=== PATIENT | female | born 1990 | race Two or more races ===

== ENCOUNTER 2024-07-26 05:09 | Inpatient (IN) | payer MEDICAID, OTHER ==
[~2024-07-26] VITALS: Ht 147.3 cm; Wt 76.3 kg
[2024-07-26 05:11] VITALS: PULSE 95; RESP 18; O2SAT 91
--- NOTE | 2024-07-26 05:28 | ED.PDOC ---
Altered Mental Status HPI Comments 27 y/o obese F, with limited known history, is BIBA for ALOC w/decrease responsiveness s/p overdose. Per EMS report, patient and partner were both found altered in same home after overdosing on unknown substance, this morning. Patient was found with pinpoint pupils, respirations degradation, and unresponsive. She was given 4mg Narcan, with positive response. Upon arrival to ED, patient is stated to began opening their eyes. No other associated symptoms reported. Further history is limited, due to patient's condition and absence of family/cad designer drafter historians. Chief Complaint: Overdose Time Seen by MD: 05:00 Reviewed Notes: Nurses Notes, Pipe Insulator Notes, Medications, Allergies Allergies: Coded Allergies: UNOBTAINABLE (Unverified , 07/26/24) Information Source: Emergency Med Personnel Mode of Arrival: EMS Severity: Severe, Unresponsive Timing: Hours Duration: Since onset Prehospital treatment: 12 Lead EKG, Accucheck, Segmental Paving Supervisor, Other (narcan) Quality: Decreased Alertness Recent: Medication/Drug Abuse Associated Signs and Symptoms: None Past Medical History PAST MEDICAL HISTORY: Unknown, Unobtainable Surgical History: Unknown, Unobtainable BUSINESS RECORDS MANAGER History: Unknown, Unobtainable Family History Family History: Unknown, Unobtainable Social History Smoker: Unknown, Unobtainable Alcohol: Unknown, Unobtainable Drugs: Unknown, Unobtainable Lives In: Home All Other Systems: Reviewed and Negative (Comprehensive systems review obtained and negative except for what is stated in the HPI.) Physical Exam General Appearance: Moderate Distress, Obese HEENT: Normal ENT Inspection, Pharynx Normal, TMs Normal Neck: Full Range of Motion, Non-Tender, Normal, Normal Inspection Respiratory: Chest Non-Tender, Lungs Clear, No Accessory Muscle Use, No Respiratory Distress, Normal Breath Sounds Cardiovascular: No Edema, No JVD, No Murmur, No Gallop, Normal Peripheral Pulses, Regular Rate/Rhythm Breast Exam: Deferred Gastrointestinal: No Organomegaly, Non Tender, No Pulsatile Mass, Normal Bowel Sounds, Soft Genitalia: Deferred Pelvic: Deferred Rectal: Deferred Extremities: No calf tenderness, Normal capillary refill, Normal inspection, Normal range of motion, Non-tender, No pedal edema Musculoskeletal : Apperance: Normal Neurologic: Disoriented, No Motor Deficits, Other (nonresponsive ) Cerebellar Function: NOT DONE Reflexes: NOT DONE Skin: Diaphoresis, Normal Color, Warm Peripheral Pulses: 3+ Radial (R), 3+ Radial (L) Lymphatic: No Adenopathy EKG EKG : Pulse Rate (adult): 86 [place]: Normal Cardiac Rhythm: NSR Block: None Hypertrophy: None ST: Normal Was a procedure done? Was a procedure done?: No Differential Diagnosis (ALOC) Differential Diagnosis: Encephalopathy, Hypoxemia, Drug Overdose, ETOH Intoxica tion X-Ray, Labs, Meds, VS Vital Signs Date Time Temp Pulse Resp B/P (MAP) Pulse Ox O2 Delivery O2 Flow Rate FiO2 07/26/24 05:28 86 07/26/24 05:18 86 07/26/24 05:13 94.2 62 8 127/85 (99) 96 94.2 07/26/24 05:11 94.2 95 12 127/85 (99) 98 94.2 07/26/24 05:11 95 18 91 Simple Mask* 12 N/A Current Medications Medications (Trade) Dose Ordered Sig/Reji Route Start Time Stop Time Status Last Admin Naloxone HCl (Narcan) 4 mg ONCE ONCE IV 07/26/24 05:30 07/26/24 05:31 DC 07/26/24 05:43 Naloxone HCl (Narcan) 4 mg ONCE ONCE IV 07/26/24 05:30 07/26/24 05:31 DC 07/26/24 05:43 Unable to get a good history. Vitals stable. Was given naloxone. Moving extremities. Was able to wean off oxygen. Resting comfortably. No distress. Insists on going home. Continue to monitor. Time of 1ST Reevaluation: 05:30 Reevaluation 1ST: Improved Patient Education/Counseling: Diagnosis, Treatment, Other (need for ED observation ) Family Education/Counseling: No Family Present Additional Information Previous visits reviewed: N/A The following tests were ordered, and results were reviewed by me: EKG Additional Information was gathered from interviewing the following independent historians: EMS I reviewed and agreed with the following test results read by other providers: N/A I discussed treatment and results with medical personnel and: patient Departure 1 Departure Time of Disposition: 07:50 Impression: Primary Impression: Metabolic encephalopathy Disposition: 30 STILL A PATIENT Condition: Good Discharged With: Self Critical Care Note Critical Care Time?: Yes (90 min-critical care time only) Critical care comment: Naloxone continue to monitor Stability Stability form required: No Heart Score Heart Score: Heart Score Response (Comments) Value History N/A 0 EKG N/A 0 Age N/A 0 Risk Factors N/A 0 Troponin N/A 0 Total 0 I personally scribed for ARIC CACERES MD ([email or web address]) on 07/26/24 at 05:28. Electronically submitted by Abraham Rock ([email or web address]). I personally scribed for ARIC CACERES MD ([email or web address]) on 07/26/24 at 05:31. Electronically submitted by Abraham Rock [email or web address]). ARIC CACERES MD July 26, 2024 05:28 JANE BAUMAN MD July 26, 2024 07:50
--- NOTE | 2024-07-26 05:41 | ECG ---
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
[2024-07-26] MEDS: NALOXONE HCL 1MG/ML 2ML SYRINGE IV ONE ×4 (05:43→11:08)
[2024-07-26 07:47] VITALS: PULSE 81; RESP 12; O2SAT 96
[2024-07-26] MEDS: SODIUM CHLORIDE 0.9% 1,000 ML IV ONE (08:27)
--- NOTE | 2024-07-26 09:43 | DVH ---
CLINICAL INFORMATION: 27 years old, Female; OVERDOSE. TECHNIQUE: Axial imaging was obtained through the brain without contrast. Coronal and sagittal reform atted images were obtained, reviewed, and stored. Images were reviewed in brain and bone windows. Al l CT scans at this medical facility are performed using dose modulation techniques as appropriate to a performed exam including the following: Automated exposure control was utilized; adjustment of the MA and/or KV according to patient size; and use of iterative reconstruction technique. CTDIvol = 53.4 7 mGy DLP = 965.83 mGy-cm COMPARISON: None FINDINGS: There is no acute intracranial hemorrhage. No mass effect or midline shift. The ventricles and sulci are within normal limits in size for age. Basal cisterns are patent. The calvarium is unre markable. Paranasal sinuses and mastoid air cells are clear. IMPRESSION: No CT evidence of acute intracranial abnormality.
[2024-07-26 09:49] LABS: Basophils # (auto) 0.1 10 ^3/uL (0-0.2); Basophils % (auto) 0.3 % (0.0-2.0); Eosinophils # (auto) 0 10 ^3/uL (0-0.8); Eosinophils % (auto) 0.1 % (0.0-7.0); Hematocrit 44.2 % (36.0-46.0); Hemoglobin 14.9 g/dL (12.2-16.2); Lymphocytes % (auto) 5.6 % (10.0-50.0); Mean Corpuscular Hemoglobin 29.4 pg (28.0-32.0); Mean Corpuscular Hgb Conc. 33.7 g/dL (32.0-36.0); Mean Corpuscular Volume 87.3 fL (80.0-100.0); Monocytes % (auto) 5.4 % (0.0-12.0); Neutrophils # (auto) 16.3 10 ^3/uL (1.6-8.6); Neutrophils % (auto) 88.6 % (37.0-80.0); Platelet Count (auto) 291 10^3/uL (140-450); Red Blood Cells 5.06 10^6/uL (4.0-5.20); Red Cell Distribution Width 14.3 % (11.8-14.3); White Blood Cell 18.4 10^3/uL (4.4-10.8)
[2024-07-26 10:00] LABS: Potassium 4.3 mmol/L (3.5-5.1); Sodium 140 mmol/L (136-145)
[2024-07-26 10:01] LABS: Anion Gap 7 (5-15); Carbon Dioxide 24 mmol/L (20-31)
[2024-07-26 10:05] LABS: Chloride 109 mmol/L (98-107)
[2024-07-26 10:06] LABS: BUN/Creatinine Ratio 20.9 (10.0-20.0); Blood Urea Nitrogen 14 mg/dL (9-23); Glucose 104 mg/dL (74-106)
[2024-07-26 13:14] LABS: Urine Amorphous Crystal FEW /hpf (None Seen); Urine Bacteria FEW /hpf (None Seen); Urine Blood Negative /uL (Negative); Urine Clarity Turbid (Clear); Urine Color Yellow (Yellow); Urine Mucus FEW (None Seen); Urine Protein, UAD 1+ (Negative); Urine Specific Gravity 1.032 (1.001-1.035); Urine Squamous Epithelial Cell FEW /hpf (<5); Urine Urobilinogen Normal (Negative); Urine WBC 5 /HPF (0-5); Urine pH 5.5 (5.0-9.0)
[2024-07-26] MEDS ORDERED: MORPHINE SULFATE INJ 2 MG/ml SYRG IV PRN (13:45)
[2024-07-26] MEDS ORDERED: ONDANSETRON HCL 4 MG/2 ML VIAL IV PRN (13:45)
[2024-07-26] MEDS ORDERED: AZITHROMYCIN 500MG/ 250ML 250 ML IV SCH (13:45)
[2024-07-26] MEDS ORDERED: NITROGLYCERIN 0.4 MG SL TAB SL PRN (13:45)
[2024-07-26] MEDS: cefTRIAXone 1GM/50ML D5W 50 ML IV SCH (13:52)
[2024-07-26] MEDS: SODIUM CHLORIDE 0.9% 1,000 ML IV SCH (13:53)
[2024-07-26] MEDS ORDERED: MORPHINE SULFATE 4 MG/ML SYR/VIAL IV PRN (14:00)
--- NOTE | 2024-07-26 14:09 | DVHHP2 ---
History of Present Illness Reason for Visit: ALOC History of Present Illness Isabell Buckner is a 33-year-old female with past medical history of LADS who presents to the ED with ALOC. Per EMS reports patient was found with another patient both altered possibly at a alliance party with pinpoint pupils. Upon examination patient states that she is homeless, states that she does not know where she had gone to or did any drugs or drink alcohol and did not know where she had woken up to. Patient also states that she does not use oxygen and currently on 4 L nasal cannula. Patient does endorse that she smokes 1 pack of cigarettes per day. Patient denies any chest pain, shortness of breath, abdominal pain, nausea, vomi ting, or diarrhea. Past Surgical History: Other (LADS surgery) Family History: Other (Patient does not know) Smoke: 1 pack per day ALCOHOL: none (Denies) Drugs: None (Denies) Lives: Homeless Domestic Violence: Neg Review of Systems Neurological: Other (ALOC) Allergies: Coded Allergies: UNOBTAINABLE (Unverified , 07/26/24) Medications Current Medications Medications Dose Ordered Sig/Reji Route Start Time Stop Time Status Last Admin Dose Admin Ceftriaxone Sodium 50 ml @ 100 mls/hr DAILY@09 IV 07/26/24 13:45 UNV Azithromycin 250 ml @ 125 mls/hr DAILY IV 07/26/24 13:45 UNV Sodium Chloride 1,000 ml @ 120 mls/hr Q8H20M IV 07/26/24 13:45 UNV Ondansetron HCl 4 mg Q4HP PRN IV 07/26/24 13:45 UNV Enoxaparin Sodium 40 mg DAILY SC 07/27/24 10:00 UNV Acetaminophen 650 mg Q6HP PRN PO 07/26/24 13:45 UNV Nitroglycerin 0.4 mg Q5MINP PRN SL 07/26/24 13:45 UNV Morphine Sulfate 2 mg Q30M PRN IV 07/26/24 13:45 UNV Exam Vital Signs Vital Signs Date Time Temp Pulse Resp B/P (MAP) Pulse Ox O2 Delivery O2 Flow Rate FiO2 07/26/24 12:00 97.5 79 12 124/65 (84) 99 97.5 07/26/24 07:47 Nasal Cannula* 4 36 General Appearance: Alert, Cooperative, No acute distress HEENT: Atraumatic Respiratory: Normal air movement Cardiovascular: Regular rate, Normal S1, Normal S2 Abdominal: Normal bowel sounds, Soft Extremities: No clubbing Neuro: Sensation intact Labs/Xrays Labs Test 07/26/24 12:48 07/26/24 09:30 Range/Units Urine Color Yellow Yellow Urine Clarity Turbid H Clear Urine pH 5.5 5.0-9.0 Urine Specific [place] 1.032 1.001-1.035 Urine Protein 1+ H Negative Urine Ketones Negative Negative Urine Blood Negative Negative /uL Urine Nitrite 2+ H Negative Urine Bilirubin Negative Negative Urine Urobilinogen Normal Negative mg/dL Urine Leukocyte Esterase Negative Negative /uL Urine RBC 2 0 - 4 /hpf Urine Microscopic WBC 5 0-5 /HPF Urine Squamous Epithelial Cells Few <5 /hpf Urine Amorphous Crystals Few None Seen /hpf Urine Bacteria Few H None Seen /hpf Urine Mucus Few None Seen Urine Glucose Normal Normal mg/dL White Blood Count 18.4 H 4.4-10.8 10^3/uL Red Blood Count 5.06 4.0-5.20 10^6/uL Hemoglobin 14.9 12.2-16.2 g/dL Hematocrit 44.2 36.0-46.0 % Mean Corpuscular Volume 87.3 80.0-100.0 fL Mean Corpuscular Hemoglobin 29.4 28.0-32.0 pg Mean Corpuscular Hemoglobin Concent 33.7 32.0-36.0 g/dL Red Cell Distribution Width 14.3 11.8-14.3 % Platelet Count 291 140-450 10^3/uL Mean Platelet Volume 7.6 6.9-10.8 fL Neutrophils (%) (Auto) 88.6 H 37.0-80.0 % Lymphocytes (%) (Auto) 5.6 L 10.0-50.0 % Monocytes (%) (Auto) 5.4 0.0-12.0 % Eosinophils (%) (Auto) 0.1 0.0-7.0 % Basophils (%) (Auto) 0.3 0.0-2.0 % Neutrophils # (Auto) 16.3 H 1.6-8.6 10 ^3/uL Lymphocytes # (Auto) 1.0 0.4-5.4 10 ^3/uL Monocytes # (Auto) 1.0 0-1.3 10 ^3/uL Eosinophils # (Auto) 0 0-0.8 10 ^3/uL Basophils # (Auto) 0.1 0-0.2 10 ^3/uL Nucleated Red Blood Cells 0.0 % Sodium Level 140 136-145 mmol/L Potassium Level 4.3 3.5-5.1 mmol/L Chloride Level 109 H 98-107 mmol/L Carbon Dioxide Level 24 20-31 mmol/L Anion Gap 7 5-15 Blood Urea Nitrogen 14 9-23 mg/dL Creatinine 0.67 0.550-1.02 mg/dL Glomerular Filtration Rate Calc 122 >90 mL/min BUN/Creatinine Ratio 20.9 H 10.0-20.0 Serum Glucose 104 74-106 mg/dL Calcium Level 10.0 8.7-10.4 mg/dL CLINICAL INFORMATION: 27 years old, Female; OVERDOSE. TECHNIQUE: Axial imaging was obtained through the brain without contrast. Coronal and sagittal reformatted images were obtained, reviewed, and stored. Images were reviewed in brain and bone windows. All CT scans at this medical facility are performed using dose modulation techniques as appropriate to a performed exam including the following: Automated exposure control was utilized; adjustment of the MA and/or KV according to patient size; and use of iterative reconstruction technique. CTDIvol = 53.47 mGy DLP = 965.83 mGy-cm COMPARISON: None FINDINGS: There is no acute intracranial hemorrhage. No mass effect or midline shift. The ventricles and sulci are within normal limits in size for age. Basal cisterns are patent. The calvarium is unremarkable. Paranasal sinuses and mastoid air cells are clear. IMPRESSION: No CT evidence of acute intracranial abnormality. Assessment/Plan Assessment/Plan Assessment Acute encephalopathy probable substance abuse Leukocytosis probably due to UTI versus pneumonia versus other etiology, rule out sepsis Acute hypoxic respiratory failure Tobacco use History of LADS surgery Plan Admit to tele IV antibiotics-ceftriaxone + azithromycin Aleman catheter CT head noted Narcan given ED NS given ED IV fluids UA EKG NPO for now DIAMOND BLENDER eval UDS Urine bacterial culture Blood culture Lactic level Chest x-ray ordered Supportive oxygen Patient reports she does not take any medications at home or on the street DVT prophylaxis-Lovenox PUD prophylaxis-H2 blockers Discussed plan of care with patient and nurse Counseled patient on cessation of tobacco use Social work-patient is homeless Plan discussed with: Patient My Orders Orders - DALE GLASGOW Procedure Category Date Status Time Ceftriaxone 1gm/50ml PHA 07/26/24 In Process D5w (Rocephin) 13:45 Azithromycin 500mg/ PHA 07/26/24 In Process 250ml (Zithromax 50 13:45 Chest Xray 1 View XY 07/26/24 Logged 13:39 Drug Screen LAB 07/26/24 Logged 13:39 Admit ADMIT 07/26/24 Transmitted 13:39 Allergies DONNA 07/26/24 In Process 13:39 Code Status CODE 07/26/24 Transmitted 13:39 Sodium Chloride 0.9% PHA 07/26/24 In Process 13:45 Ondansetron Hcl PHA 07/26/24 In Process (Zofran) 13:45 Enoxaparin Sodium PHA 07/27/24 In Process (Lovenox) 10:00 Complete Blood Count LAB 07/27/24 Verified 04:00 Comprehensive LAB 07/27/24 Verified Metabolic Panel 04:00 Npo (Nothing By DIET 07/26/24 Transmitted Mouth) Diet Dinner Acetaminophen Tablet PHA 07/26/24 In Process (Tylenol Tablet) 13:45 Nitroglycerin PHA 07/26/24 In Process Sublingual (Ntrostat 13:45 Stat Ekg For Chest DONNA 07/26/24 In Process Pain 13:39 Notify Md Of Changes DONNA 07/26/24 In Process From Base 13:39 Frame And Scrap Crusher For DONNA 07/26/24 In Process 24 Hours 13:39 Emergency Dysrhythmia DONNA 07/26/24 In Process Protocol 13:39 Rhythm Strips Once DONNA 07/26/24 In Process Every Shift 13:39 Oxygen By Nasal RT 07/26/24 Transmitted Cannula 13:39 Speech Pathologist DONNA 07/26/24 In Process Eval: Swall 13:39 Urine Bacterial MIGUEL 07/26/24 Logged Culture 13:39 Blood Culture MIGUEL 07/26/24 Logged 13:39 Lactic Acid W/ Reflex LAB 07/26/24 Logged Order 13:39 Morphine Sulfate PHA 07/26/24 In Process Injection 14:00 Date of Service: July 26, 2024 Billing Provider: DALE GLASGOW Common Visit Codes: [id number] INP/OBS CARE (HIGH) DALE GLASGOW July 26, 2024 14:09
[2024-07-26 14:18] LABS: Amphetamine Screen, Urine Pos (NEGATIVE); Barbiturate Scree,Urine Neg (NEGATIVE); Benzodiazephine Screen, Urine Neg (NEGATIVE); Cannabinoid Screen, Urine Pos (NEGATIVE); Cocaine Screen, Urine Neg (NEGATIVE); Opiate Scree,Urine Neg (NEGATIVE); Phencyclidine Screen, Urine Neg (NEGATIVE)
--- NOTE | 2024-07-26 14:26 | DVH ---
CHEST RADIOGRAPH Indication: poss asp Technique: Single frontal view of the chest was obtained Comparison: None FINDINGS: Lines and Tubes: None Lungs: No focal consolidation. Pleura: No effusion. No pneumothorax. Cardiomediastinal contours: Cardiomegaly Bones: No acute osseous abnormality. IMPRESSION: Cardiomegaly with CHF
[2024-07-26] MEDS: AZITHROMYCIN 500MG/ 250ML 250 ML IV SCH (16:45)
[2024-07-26 17:28] VITALS: BP 115/54; PULSE 61; RESP 18; O2SAT 100
[2024-07-26 20:00] VITALS: PULSE 69; PULSE 74; RESP 17; O2SAT 100
[2024-07-26 21:00] VITALS: BP 105/63; PULSE 74; RESP 17; TEMP 97.7; O2SAT 100
[2024-07-27] VITALS (8 sets, daily range): BP systolic 91–120; BP diastolic 47–74; PULSE 63–91; RESP 17–18; TEMP 96.8–98.3; O2SAT 90–97
[2024-07-27] MEDS: ENOXAPARIN SOD 40 MG/0.4 ML SYRINGE SC SCH (09:43)
[2024-07-27] MEDS: PANTOPRAZOLE 40 MG/10 ML VIAL INJ IV SCH (09:43)
[2024-07-27 11:12] LABS: Basophils # (auto) 0.1 10 ^3/uL (0-0.2); Basophils % (auto) 0.5 % (0.0-2.0); Eosinophils # (auto) 0.1 10 ^3/uL (0-0.8); Eosinophils % (auto) 0.7 % (0.0-7.0); Hematocrit 40.1 % (36.0-46.0); Hemoglobin 13.5 g/dL (12.2-16.2); Lymphocytes # (auto) 1.5 10 ^3/uL (0.4-5.4); Lymphocytes % (auto) 11.6 % (10.0-50.0); Mean Corpuscular Hemoglobin 29.9 pg (28.0-32.0); Mean Corpuscular Hgb Conc. 33.7 g/dL (32.0-36.0); Mean Corpuscular Volume 88.6 fL (80.0-100.0); Monocytes # (auto) 0.8 10 ^3/uL (0-1.3); Monocytes % (auto) 6.1 % (0.0-12.0); Neutrophils # (auto) 10.3 10 ^3/uL (1.6-8.6); Neutrophils % (auto) 81.1 % (37.0-80.0); Nucleated Red Blood Cells % 0.1 %; Platelet Count (auto) 236 10^3/uL (140-450); Red Blood Cells 4.52 10^6/uL (4.0-5.20); Red Cell Distribution Width 14.1 % (11.8-14.3); White Blood Cell 12.7 10^3/uL (4.4-10.8)
--- NOTE | 2024-07-27 11:14 | DVHPNRES ---
Progress Note Date Seen: July 27, 2024 Resident Creating Document: PAO DENG RESIDENT Has the PT tested + for MRSA If YES, has PT been informed?: No Medical Necessity Reason Pt with a Central, PICC or Fol: No Subjective Review of Systems Isabell Buckner is a 33-year-old homeless female with a past medical history of juvenile arthritis and longstanding drug abuse who presented to the emergency department with altered level of consciousness, suspected to be secondary to a drug overdose. According to EMS, the patient was found at a location with another individual, both exhibiting altered mental status and pinpoint pupils, suggesting possible opioid use. The setting appeared to be a democrat. Upon evaluation in the ED, the patient is now more alert and oriented. She reports being homeless and recently arrived from [place]. She admits to a cocaine overdose, stating that she began sneezing and subsequently lost memory of the events that followed. The patient disclosed a long history of substance use, including daily use of methamphetamine, marijuana, and smoking half a pack of cigarettes since the age of 10. She denies current sexual activity and reports no history of sexual abuse. ROS: The patient was seen and examined at the bedside. She is more alert today and able to answer questions appropriately. She reports feeling very weak and thirsty but denies any other complaints at this time. Changes from previous H/P or p: No Changes Objective vital signs Vital Sign Date Time Temp Pulse Resp B/P (MAP) Pulse Ox O2 Delivery O2 Flow Rate FiO2 07/27/24 09:00 97.6 85 18 91/47 (62) 95 97.6 07/27/24 07:55 Nasal Cannula* 4 36 Total Intake and Output 07/26/24 07/26/24 07/27/24 15:00 23:00 07:00 Intake Total 1220 ml 120 ml 0 ml Output Total 450 ml Balance 1220 ml 120 ml -450 ml medications Current Medications Medications Dose Ordered Sig/Reji Route Start Time Stop Time Status Last Admin Dose Admin Ceftriaxone Sodium 50 ml @ 100 mls/hr DAILY@09 IV 07/26/24 13:45 07/27/24 09:44 100 MLS/HR Sodium Chloride 1,000 ml @ 120 mls/hr Q8H20M IV 07/26/24 13:45 07/27/24 04:20 120 MLS/HR Ondansetron HCl 4 mg Q4HP PRN IV 07/26/24 13:45 Enoxaparin Sodium 40 mg DAILY SC 07/27/24 10:00 07/27/24 09:43 40 MG Acetaminophen 650 mg Q6HP PRN PO 07/26/24 13:45 Nitroglycerin 0.4 mg Q5MINP PRN SL 07/26/24 13:45 Morphine Sulfate 2 mg Q30M PRN IV 07/26/24 13:45 UNV Morphine Sulfate 2 mg Q30MIN PRN IV 07/26/24 14:00 Pantoprazole Sodium 40 mg DAILY IV 07/27/24 10:00 07/27/24 09:43 40 MG Azithromycin 250 ml @ 125 mls/hr DAILY@1700 IV 07/26/24 17:00 07/26/24 16:45 125 MLS/HR Examination Pt is lying on bed, poor hygiene and sleepy General Appearance: Alert, Oriented X3, Cooperative, mild distress HEENT: Atraumatic, Mucous membranes dry , Miosis Respiratory: Clear to auscultation, Normal air movement, bilateral lower lung crackles Cardiovascular: Regular rate, Normal S1, Normal S2, No murmurs Abdominal: Hypo-active bowel sounds, Soft, no distention, no tenderness Extremities: No edema, Normal pulses, No tenderness/swelling Skin: No Significant rash, except past surgical scars Neuro: Normal speech, sensorimotor deficits none Nurse was there as rope cleaner during examination laboratory and microbiology Test 07/27/24 10:37 Range/Units Serum Glucose Pending Microbiology Date/Time Source Procedure Growth Status 07/26/24 12:48 Urine - [place] Urine Culture - Preliminary Resulted Labs and/or images reviewed: Labs reviewed by me, Image(s) reviewed by me Problem List/Assessment/Plan Problem List/Assessment/Plan # Acute toxic / metabolic encephalopathy likely from below # Acute hypoxic respiratory failure from drug overdose- on nasal cannula 4 L O2 # ? Fentanyl Overdose # Polysubstance Abuse/ overdose # Methamphetamine & marijuana abuse disorder/ dependence # tobacco abuse /dependence # homelessness- social service consult - UDS positive for fentanyl, methamphetamine, marijuana - In ED patient was given Narcan - continuously monitor lab and supportive management - gave diet as patient tolerated - counseled regarding polysubstance abuse cessation for 22 minutes - monitor for withdrawal symptoms and vitals closely # R/o structural heart disease - BNP - ordered echocardiogram - CXR showing cardiomegaly and possible CHF # R/o G+/- Bacterial PNA - respiratory cultures - Rocephin plus azithromycin - continue oxygen NC # Acute complicated UTI/ cystitis - evident on urinalysis - ordered urine bacterial culture - currently giving Rocephin Protonix Lovenox Liquid diet and advanced as she tolerates Goals of care discussed with the patient for 20 minutes: Full code status Case discussed with Dr. Shah, patient and nurse Plan discussed with: Patient, Other (Nurse) My Orders My Orders Orders - PAO DENG RESIDENT Procedure Category Date Status Time Hemoglobin A1c LAB 07/27/24 In Process 07:24 Thyroid Stimulating LAB 07/27/24 In Process Hormone 07:24 Ammonia LAB 07/27/24 In Process 07:24 Covid19 Antigen Merary LAB 07/27/24 Logged 07:24 Rapid Influenza A&B LAB 07/27/24 Logged 07:24 PTPTT LAB 07/27/24 In Process 07:24 B-Type Natriuretic LAB 07/27/24 In Process Peptide 07:24 Echo 2d Mode Cardiac US 07/27/24 Logged DOP 07:24 Beta Hcg, Quantitative LAB 07/27/24 In Process 07:24 Clear Liq Diet DIET 07/27/24 Transmitted Lunch Respiratory Culture MIGUEL 07/27/24 Logged W/ Gs 11:06 Addendum Addendum Addendum I was physically present for the tomas portions of the service provided to patient by THE RESIDENT. I have reviewed the documentation, discussed the case with resident and agree with the resident's documentation except as noted. Also the patient's clinical case was discussed with the patient's nurse. This medical document was created using an electronic medical record system with computerized dictation system. Although this document has been carefully reviewed, there might still be some phonetic and typographical errors. These areas are purely typographical due to imperfections of the software programs, and do not reflect any compromise in the patient's medical care. Late signature. Date of Service: July 27, 2024 Billing Provider: PRUDENCE SHAH MD Common Visit Codes: [id number] INP/OBS CARE(HIGH) Secondary Visit Codes: [id number] CHNG SMOKING >10MIN (Counseled for 22 minutes for marijuana/methamphetamine use cessation; informed the patient that her methamphetamine was laced with fentanyl most likely), [id number] CARE PLAN 30 MINUTES (20 minutes) PAO DENG RESIDENT July 27, 2024 11:14 PRUDENCE SHAH MD July 28, 2024 06:40
[2024-07-27 11:20] LABS: INR 1.02 (0.9-1.15); Partial Thromboplastin Time 28.8 SEC (24.5-34.5); Prothrombin Time 10.8 sec (9.3-11.8)
[2024-07-27 11:24] LABS: Alanine Aminotransferase 26 U/L (7-40); Albumin 4.4 g/dL (3.2-4.8); Alkaline Phosphatase 108 U/L (46-116); Anion Gap 8 (5-15); Aspartate Aminotransferase 39 U/L (13-40); BUN/Creatinine Ratio 17.7 (10.0-20.0); Blood Urea Nitrogen 11 mg/dL (9-23); Calcium 9.5 mg/dL (8.7-10.4); Carbon Dioxide 23 mmol/L (20-31); Chloride 105 mmol/L (98-107); Glucose 80 mg/dL (74-106); Magnesium 1.6 mg/dL (1.6-2.6); Potassium 3.9 mmol/L (3.5-5.1); Total Protein 7.1 g/dL (5.7-8.2)
[2024-07-27 11:25] LABS: Bilirubin, Total 0.8 mg/dL (0.2-1.0)
[2024-07-27 11:28] LABS: Thyroid Stimulating Hormone 1.45 uIU/mL (0.55-4.78)
[2024-07-27 11:33] LABS: Beta HCG, Quantitative 0.4 mIU/mL (1.5-4.2); Sodium 136 mmol/L (136-145)
[2024-07-27 12:57] LABS: COVID19 ANTIGEN SOFIA FIA NEGATIVE (NEGATIVE); Rapid Influenza A Negative (Negative); Rapid Influenza B Negative (Negative)
--- NOTE | 2024-07-27 17:54 | DVHSR ---
APPROVED REPORT EXAM: Two-dimensional and M-mode echocardiogram with Doppler and color Doppler. Blood Pressure: 100/56 mmHg INDICATION ?chf RISK FACTORS Height: 4'10, Weight: 164 DIMENSIONS LVDd4.3 (3.8-5.7cm)LA (2D)3.1 (1.9-4.0cm)Aortic Root2.9 (2.0-3.7cm) LVDs2.8 (2.5-4.0cm)LA (MM) (1.9-4.0cm)Aortic Cusp Exc1.6 (1.5-2.0cm) EF (%) 55.0 (55-70%)Rt. Atrium3.2 (1.9-4.0cm)Asc. Aorta2.2 cm IVSd0.9 (0.7-1.1cm)RV (D)3.5 (1.8-2.4cm) PWd0.6 (0.7-1.1cm) Mitral Valve MitralMitral Stenosis E wave1.00m/sMV Mean GR.mmHg A wave0.71m/sMV Peak GR.81mmHg E/A ratio1.42D MVAcm2 DECEL [id number] 1/2 Tim[place] Aortic Valve Aortic ValveAortic Stenosis V11.02m/Carolyn Mean GR.5mmHg V21.42m/Carolyn Peak GR.8mmHg LVOT Diameter1.9 (1.8-2.4cm)Doppler AVA2.04cm2 Pulmonic Valve V21.18m/s Tricuspid Valve TR Velocity2.55m/s [id number] Conclusion lvef 65% normal lv function normal rv function no severe valve abnormalities noted
[2024-07-27] MEDS: ACETAMINOPHEN 325 MG TAB PO PRN (23:01)
[2024-07-28] VITALS (8 sets, daily range): BP systolic 108–133; BP diastolic 68–83; PULSE 64–92; RESP 16–18; TEMP 97.6–98.9; O2SAT 90–96
[2024-07-28 06:41] LABS: Basophils # (auto) 0 10 ^3/uL (0-0.2); Basophils % (auto) 0.4 % (0.0-2.0); Eosinophils # (auto) 0.1 10 ^3/uL (0-0.8); Eosinophils % (auto) 1.5 % (0.0-7.0); Hematocrit 36.2 % (36.0-46.0); Hemoglobin 12.3 g/dL (12.2-16.2); Lymphocytes # (auto) 1.6 10 ^3/uL (0.4-5.4); Lymphocytes % (auto) 21.8 % (10.0-50.0); Mean Corpuscular Hemoglobin 29.9 pg (28.0-32.0); Mean Corpuscular Hgb Conc. 34.1 g/dL (32.0-36.0); Mean Corpuscular Volume 87.7 fL (80.0-100.0); Monocytes # (auto) 0.8 10 ^3/uL (0-1.3); Neutrophils # (auto) 4.7 10 ^3/uL (1.6-8.6); Neutrophils % (auto) 65.3 % (37.0-80.0); Nucleated Red Blood Cells % 0.1 %; Platelet Count (auto) 212 10^3/uL (140-450); Red Blood Cells 4.12 10^6/uL (4.0-5.20); Red Cell Distribution Width 13.6 % (11.8-14.3); White Blood Cell 7.2 10^3/uL (4.4-10.8)
[2024-07-28 06:56] LABS: Calcium 9.2 mg/dL (8.7-10.4); Potassium 3.8 mmol/L (3.5-5.1); Sodium 139 mmol/L (136-145)
[2024-07-28 06:57] LABS: Anion Gap 6 (5-15); Carbon Dioxide 26 mmol/L (20-31)
[2024-07-28 07:02] LABS: BUN/Creatinine Ratio 11.1 (10.0-20.0); Glucose 96 mg/dL (74-106)
[2024-07-28 07:04] LABS: Blood Urea Nitrogen 6 mg/dL (9-23); Chloride 107 mmol/L (98-107)
--- NOTE | 2024-07-28 14:06 | DVHPNRES ---
Progress Note Date Seen: July 28, 2024 Resident Creating Document: PAO DENG RESIDENT Has the PT tested + for MRSA If YES, has PT been informed?: No Medical Necessity Reason Pt with a Central, PICC or Fol: No Subjective Review of Systems Patient was seen and examined at the bedside. Overnight events reviewed, no new complaints reported at this time except mild weakness. Patient reported that she is feeling lot better when compared to admission. In the morning patient is on 4 L/min oxygen gradually weaning off. Patient reports: Feels better Objective vital signs Vital Sign Date Time Temp Pulse Resp B/P (MAP) Pulse Ox O2 Delivery O2 Flow Rate FiO2 07/28/24 12:43 97.6 64 18 116/83 (94) 90 97.6 07/28/24 08:00 Nasal Cannula* 4 36 Total Intake and Output 07/27/24 07/27/24 07/28/24 15:00 23:00 07:00 Intake Total 50 ml 850 ml 1200 ml Output Total 150 ml 750 ml Balance 50 ml 700 ml 450 ml medications Current Medications Medications Dose Ordered Sig/Reji Route Start Time Stop Time Status Last Admin Dose Admin Ceftriaxone Sodium 50 ml @ 100 mls/hr DAILY@09 IV 07/26/24 13:45 07/28/24 09:52 100 MLS/HR Sodium Chloride 1,000 ml @ 120 mls/hr Q8H20M IV 07/26/24 13:45 07/28/24 07:25 120 MLS/HR Ondansetron HCl 4 mg Q4HP PRN IV 07/26/24 13:45 Enoxaparin Sodium 40 mg DAILY SC 07/27/24 10:00 07/28/24 09:52 40 MG Acetaminophen 650 mg Q6HP PRN PO 07/26/24 13:45 07/27/24 23:01 650 MG Nitroglycerin 0.4 mg Q5MINP PRN SL 07/26/24 13:45 Morphine Sulfate 2 mg Q30M PRN IV 07/26/24 13:45 UNV Morphine Sulfate 2 mg Q30MIN PRN IV 07/26/24 14:00 Pantoprazole Sodium 40 mg DAILY IV 07/27/24 10:00 07/28/24 09:52 40 MG Azithromycin 250 ml @ 125 mls/hr DAILY@1700 IV 07/26/24 17:00 07/27/24 18:02 125 MLS/HR Examination Pt is lying on bed, poor hygiene and sleepy General Appearance: Alert, Oriented X3, Cooperative, mild distress HEENT: Atraumatic, Mucous membranes dry Respiratory: Clear to auscultation, Normal air movement, bilateral lower lung crackles improved Cardiovascular: Regular rate, Normal S1, Normal S2, No murmurs Abdominal: Mild Hypo-active bowel sounds, Soft, no distention, no tenderness Extremities: No edema, Normal pulses, No tenderness/swelling Skin: No Significant rash, except past surgical scars Neuro: Normal speech, sensorimotor deficits none Nurse was there as financial retirement plan specialist during examination laboratory and microbiology Laboratory Tests 07/28/24 06:08 Test 07/28/24 06:08 Range/Units Serum Glucose 96 74-106 mg/dL Microbiology Date/Time Source Procedure Growth Status 07/26/24 14:14 Blood Blood Culture - Preliminary NO GROWTH AFTER 24 HOURS OF INCUBATION. Resulted 07/26/24 12:48 Urine - [place] Urine Culture - Final Escherichia coli Complete Labs and/or images reviewed: Labs reviewed by me, Image(s) reviewed by me Problem List/Assessment/Plan Problem List/Assessment/Plan # Acute toxic / metabolic encephalopathy likely from below- improving # Acute hypoxic respiratory failure from drug overdose- on O2 NC 4-->2 L Weaning off gradually # ? Fentanyl Overdose # Polysubstance Abuse/ overdose # Methamphetamine & marijuana abuse disorder/ dependence # tobacco abuse /dependence # homelessness- social service consult - UDS positive for fentanyl, methamphetamine, marijuana - In ED patient was given Narcan - continuously monitor lab and supportive management - gave diet as patient tolerated - counseled regarding polysubstance abuse cessation for more than 17 minutes - monitor for withdrawal symptoms and vitals closely # Sepsis likely from below # Acute complicated UTI/ cystitis - evident on urinalysis - ordered urine bacterial culture, growing E.coli - currently giving Rocephin # R/o structural heart disease - BNP not elevated - Echocardiogram -lvef 65% - CXR showing cardiomegaly and possible CHF # R/o G+/- Bacterial PNA - respiratory cultures - Rocephin plus azithromycin - continue oxygen therapy as needed Protonix Lovenox Liquid diet and advanced as she tolerates Case discussed with Dr. Shah, patient and nurse Plan discussed with: Patient, Other (RN) My Orders My Orders Orders - PAO DENG RESIDENT Procedure Category Date Status Time Full Liq Diet DIET 07/28/24 Transmitted Lunch Notify Provider NOTICE 07/28/24 Transmitted Malnutrition 13:41 Nutritional NOURISH 07/28/24 Transmitted Supplements 13:41 Dietary NOTICE 07/28/24 Transmitted Recommendations 13:41 Dietary Evaluation Review Recommendations by RD: Dietary education by RD, Protein Supplementation Comments: 1) Initiate Ensure Enlive qd. Encourage optimal PO intake 2) Advance to regular diet when medically feasible, pending speech therapy approval 3) Refer to outpatient RD for weight management 4) Follow-up with hospice social worker r/t polysubstance abuse and housing assistance 5) Continue to monitor I&O, labs, and skin integrity Expected Outcomes/Goals: 1) appetite and labs to improve 2) diet to advance 3) f/u in 2-3 days Addendum Addendum Addendum I was physically present for the tomas portions of the service provided to patient by THE RESIDENT. I have reviewed the documentation, discussed the case with resident and agree with the resident's documentation except as noted. Also the patient's clinical case was discussed with the patient's nurse. This medical document was created using an electronic medical record system with computerized dictation system. Although this document has been carefully reviewed, there might still be some phonetic and typographical errors. These areas are purely typographical due to imperfections of the software programs, and do not reflect any compromise in the patient's medical care. Late signature. Date of Service: July 28, 2024 Billing Provider: PRUDENCE SHAH MD Common Visit Codes: [id number] INP/OBS CARE(HIGH) SOWMYADARIEN VILLASENORDEEPAK RESIDENT July 28, 2024 14:06 PRUDENCE SHAH MD Jul 29, 2024 12:52
[2024-07-29] VITALS (7 sets, daily range): BP systolic 108–131; BP diastolic 61–82; PULSE 61–84; RESP 15–18; TEMP 97.6–99; O2SAT 92–99
[2024-07-29 06:10] LABS: Basophils # (auto) 0 10 ^3/uL (0-0.2); Basophils % (auto) 0.6 % (0.0-2.0); Eosinophils # (auto) 0.1 10 ^3/uL (0-0.8); Eosinophils % (auto) 1.7 % (0.0-7.0); Hematocrit 36.2 % (36.0-46.0); Hemoglobin 12.5 g/dL (12.2-16.2); Lymphocytes # (auto) 1.3 10 ^3/uL (0.4-5.4); Lymphocytes % (auto) 16.1 % (10.0-50.0); Mean Corpuscular Hemoglobin 29.6 pg (28.0-32.0); Mean Corpuscular Hgb Conc. 34.4 g/dL (32.0-36.0); Mean Corpuscular Volume 86.1 fL (80.0-100.0); Monocytes # (auto) 0.6 10 ^3/uL (0-1.3); Monocytes % (auto) 7.9 % (0.0-12.0); Neutrophils # (auto) 5.7 10 ^3/uL (1.6-8.6); Neutrophils % (auto) 73.7 % (37.0-80.0); Nucleated Red Blood Cells % 0.1 %; Platelet Count (auto) 240 10^3/uL (140-450); Red Blood Cells 4.21 10^6/uL (4.0-5.20); Red Cell Distribution Width 13.5 % (11.8-14.3); White Blood Cell 7.8 10^3/uL (4.4-10.8)
[2024-07-29 06:23] LABS: Anion Gap 7 (5-15); Carbon Dioxide 26 mmol/L (20-31); Sodium 141 mmol/L (136-145)
[2024-07-29 06:25] LABS: Calcium 9.6 mg/dL (8.7-10.4)
[2024-07-29 06:29] LABS: Glucose 101 mg/dL (74-106)
[2024-07-29 06:30] LABS: BUN/Creatinine Ratio 8.9 (10.0-20.0); Blood Urea Nitrogen < 5 mg/dL (9-23); Chloride 108 mmol/L (98-107); Potassium 3.5 mmol/L (3.5-5.1)
[2024-07-29 12:29] LABS: Base Excess 1.9 mmol/L (-2.0-3.0)
--- NOTE | 2024-07-29 19:05 | DVHPNRES ---
Progress Note Date Seen: Jul 29, 2024 Resident Creating Document: SUE RIGGINS RESIDENT Has the PT tested + for MRSA If YES, has PT been informed?: No Medical Necessity Reason Pt with a Central, PICC or Fol: No Subjective Review of Systems Patient seen and examined at bedside Continued to have shortness of breath On oxygen via nasal cannula at 3-4 L/min Cough Patient denied fever, chills, no new other night events Objective vital signs Vital Sign Date Time Temp Pulse Resp B/P (MAP) Pulse Ox O2 Delivery O2 Flow Rate FiO2 07/29/24 16:54 98.8 76 18 108/65 (79) 99 98.8 07/29/24 07:30 Nasal Cannula* 3 32 Total Intake and Output 07/28/24 07/28/24 07/29/24 15:00 23:00 07:00 Intake Total 620 ml 1345 ml Output Total 1500 ml 2300 ml Balance -880 ml -955 ml medications Current Medications Medications Dose Ordered Sig/Reji Route Start Time Stop Time Status Last Admin Dose Admin Ceftriaxone Sodium 50 ml @ 100 mls/hr DAILY@09 IV 07/26/24 13:45 07/29/24 09:20 100 MLS/HR Sodium Chloride 1,000 ml @ 120 mls/hr Q8H20M IV 07/26/24 13:45 07/29/24 18:47 120 MLS/HR Ondansetron HCl 4 mg Q4HP PRN IV 07/26/24 13:45 Enoxaparin Sodium 40 mg DAILY SC 07/27/24 10:00 07/29/24 09:20 40 MG Acetaminophen 650 mg Q6HP PRN PO 07/26/24 13:45 07/28/24 16:40 650 MG Nitroglycerin 0.4 mg Q5MINP PRN SL 07/26/24 13:45 Morphine Sulfate 2 mg Q30M PRN IV 07/26/24 13:45 UNV Morphine Sulfate 2 mg Q30MIN PRN IV 07/26/24 14:00 Pantoprazole Sodium 40 mg DAILY IV 07/27/24 10:00 07/29/24 09:20 40 MG Azithromycin 250 ml @ 125 mls/hr DAILY@1700 IV 07/26/24 17:00 07/29/24 18:46 125 MLS/HR Examination General Appearance: Cooperative. Bad hygiene Head Exam: Normal inspection Neck Exam: Normal inspection. Non-tender. Normal alignment Pulmonary/Respiratory: Chest non-tender. Crackles over bilateral lower lung base. No wheezing. Cardiovascular/Chest: Regular rate and rhythm. No murmurs. No JVD. Peripheral Pulses: 2+ Radial (R). 2+ Radial (L). 2+ Pedal (R). 2+ Pedal (L) Abdominal Exam: Normal bowel sounds. Soft. Nontender. No hepatosplenomegaly. No masses Ankle Exam: Negative ankle edema Lower extremities: Negative lower extremity edema Neuro/Mental Status: A&O x4. Coherent Thoughts/Psych: Normal thought pattern. Appropriate mood and affect. Good judgement and insight Appearance: In no acute distress Skin Exam: Normal inspection. Normal color. Warm. Dry laboratory and microbiology Laboratory Tests 07/29/24 05:47 Test 07/29/24 05:47 Range/Units Serum Glucose 101 74-106 mg/dL Microbiology Date/Time Source Procedure Growth Status 07/26/24 14:14 Blood Blood Culture - Preliminary NO GROWTH AFTER 72 HOURS OF INCUBATION. Resulted 07/26/24 12:48 Urine - [place] Urine Culture - Final Escherichia coli Complete Labs and/or images reviewed: Labs reviewed by me, Image(s) reviewed by me Problem List/Assessment/Plan Problem List/Assessment/Plan # Acute toxic / metabolic encephalopathy likely from below- improving # Acute hypoxic respiratory failure from drug overdose- on O2 NC 4-->2 L/min Weaning off gradually # ? Fentanyl Overdose # Polysubstance Abuse/ overdose # Methamphetamine & marijuana abuse disorder/ dependence # tobacco abuse /dependence # homelessness- social service consult - UDS positive for fentanyl, methamphetamine, marijuana - In ED patient was given Narcan - continuously monitor lab and supportive management - gave diet as patient tolerated - counseled regarding polysubstance abuse cessation - monitor for withdrawal symptoms and vitals closely -ABGs: PH 7.465, PO2 52.8, HC03 25.4 # Sepsis likely from below # Acute complicated UTI/ cystitis - evident on urinalysis - ordered urine bacterial culture, growing E.coli - currently giving Rocephin # R/o structural heart disease - BNP not elevated - Echocardiogram -LV EF 65% - CXR showing cardiomegaly and possible CHF # R/o G+/- Bacterial PNA - respiratory cultures - Rocephin plus azithromycin - continue oxygen therapy as needed Protonix Lovenox Liquid diet and advanced as she tolerates Full code status Plan discussed with Dr. Shah Plan discussed with: Patient, Other (RN) My Orders My Orders Orders - SUE RIGGINS RESIDENT Procedure Category Date Status Time Discontinue Love THOMPSON 07/29/24 In Process Catheter 10:40 Abg W/ Co-Ox RT 07/29/24 Logged 11:36 Dietary Evaluation Review Recommendations by RD: Dietary education by RD, Protein Supplementation Comments: 1) Initiate Ensure Enlive qd. Encourage optimal PO intake 2) Advance to regular diet when medically feasible, pending speech therapy approval 3) Refer to outpatient RD for weight management 4) Follow-up with psych social worker r/t polysubstance abuse and housing assistance 5) Continue to monitor I&O, labs, and skin integrity Expected Outcomes/Goals: 1) appetite and labs to improve 2) diet to advance 3) f/u in 2-3 days Addendum Addendum Addendum I was physically present for the tomas portions of the service provided to patient by THE RESIDENT. I have reviewed the documentation, discussed the case with resident and agree with the resident's documentation except as noted. Also the patient's clinical case was discussed with the patient's nurse. This medical document was created using an electronic medical record system with computerized dictation system. Although this document has been carefully reviewed, there might still be some phonetic and typographical errors. These areas are purely typographical due to imperfections of the software programs, and do not reflect any compromise in the patient's medical care. Late signature. Date of Service: Jul 29, 2024 Billing Provider: PRUDENCE SHAH MD Common Visit Codes: [id number] INP/OBS CARE(HIGH) SUE RIGGINS RESIDENT Jul 29, 2024 19:05 PRUDENCE SHAH MD Jul 30, 2024 05:39
[2024-07-30] VITALS (9 sets, daily range): BP systolic 113–144; BP diastolic 66–85; PULSE 63–93; RESP 15–20; TEMP 97.6–98.5; O2SAT 92–100
--- NOTE | 2024-07-30 07:57 | DVH ---
CHEST RADIOGRAPH Indication: sob Technique: Single frontal view of the chest was obtained COMPARISON: XY CHEST XRAY 1 VIEW on DOS: 07/26/24 FINDINGS: Lines and Tubes: Right central venous catheter in satisfactory position. Lungs: Multifocal airspace disease Pleura: No effusion. No pneumothorax. Cardiomediastinal contours: Unremarkable Bones: Unremarkable IMPRESSION: Multifocal airspace disease.
[2024-07-30] MEDS: FUROSEMIDE 20 MG/2 ML VIAL IV ONE ×2 (10:57→14:00)
--- NOTE | 2024-07-30 14:33 | DVHPNRES ---
Progress Note Date Seen: Jul 30, 2024 Resident Creating Document: MONICA KWAN RESIDENT Has the PT tested + for MRSA If YES, has PT been informed?: No Medical Necessity Reason Pt with a Central, PICC or Fol: No Subjective Review of Systems Isabell Buckner is a 33-year-old homeless female with a past medical history of juvenile arthritis and longstanding drug abuse who presented to the emergency department with altered level of consciousness, suspected to be secondary to a drug overdose. According to EMS, the patient was found at a location with another individual, both exhibiting altered mental status and pinpoint pupils, suggesting possible opioid use. The setting appeared to be a republican. Upon evaluation in the ED, the patient is now more alert and oriented. She reports being homeless and recently arrived from [place]. She admits to a cocaine overdose, stating that she began sneezing and subsequently lost memory of the events that followed. The patient disclosed a long history of substance use, including daily use of methamphetamine, marijuana, and smoking half a pack of cigarettes since the age of 10. She denies current sexual activity and reports no history of sexual abuse. Patient seen and examined at the bedside. Reports feeling better, denies any active symptoms. Denies chest pain. Denies shortness of breaths. Ordered 6 minute walk test, saturating 95 on 2 L. potassium supplemented, Lasix 20 mg IV b.i.d. for today Objective vital signs Vital Sign Date Time Temp Pulse Resp B/P (MAP) Pulse Ox O2 Delivery O2 Flow Rate FiO2 07/30/24 10:57 130/77 07/30/24 08:53 97.6 69 17 98 97.6 07/30/24 08:00 Nasal Cannula* 3 32 Total Intake and Output 07/29/24 07/29/24 07/30/24 15:00 23:00 07:00 Intake Total 50 ml 1905 ml 240 ml Output Total 2300 ml 1550 ml Balance 50 ml -395 ml -1310 ml medications Current Medications Medications Dose Ordered Sig/Reji Route Start Time Stop Time Status Last Admin Dose Admin Ceftriaxone Sodium 50 ml @ 100 mls/hr DAILY@09 IV 07/26/24 13:45 07/30/24 09:20 100 MLS/HR Ondansetron HCl 4 mg Q4HP PRN IV 07/26/24 13:45 Enoxaparin Sodium 40 mg DAILY SC 07/27/24 10:00 07/30/24 09:26 40 MG Acetaminophen 650 mg Q6HP PRN PO 07/26/24 13:45 07/30/24 09:25 650 MG Nitroglycerin 0.4 mg Q5MINP PRN SL 07/26/24 13:45 Morphine Sulfate 2 mg Q30M PRN IV 07/26/24 13:45 UNV Morphine Sulfate 2 mg Q30MIN PRN IV 07/26/24 14:00 Pantoprazole Sodium 40 mg DAILY IV 07/27/24 10:00 07/30/24 09:25 40 MG Azithromycin 250 ml @ 125 mls/hr DAILY@1700 IV 07/26/24 17:00 07/29/24 18:46 125 MLS/HR Examination Patient lying in bed, in no acute distress General: Well-built, afebrile, palor, mucosae are moist Cardiovascular: Regular S1 and S2. No murmurs, gallops or rubs. No JVD elevation. No pedal edema Respiratory: bibasilar crackles heard on auscultation bilateral lung hooks. Saturating 95 on 2 L. Abdomen: Soft, nontender, nondistended, normoactive bowel sounds, no rebound tenderness, no organomegaly, no masses Genitourinary: Deferred MSK/skin: Mobilizes 4 limbs. Skin is dry and warm Neurological: No motor, no sensitive deficits, normal speech. Pupils are isocoric and reactive. Psych/Mental Status: A/Ox3 laboratory and microbiology Laboratory Tests 07/29/24 05:47 Test 07/29/24 05:47 Range/Units Serum Glucose 101 74-106 mg/dL Microbiology Date/Time Source Procedure Growth Status 07/26/24 14:14 Blood Blood Culture - Preliminary NO GROWTH AFTER 72 HOURS OF INCUBATION. Resulted 07/26/24 12:48 Urine - [place] Urine Culture - Final Escherichia coli Complete Labs and/or images reviewed: Labs reviewed by me, Image(s) reviewed by me Problem List/Assessment/Plan Problem List/Assessment/Plan # Acute toxic / metabolic encephalopathy likely from polysubstance use # Acute hypoxic respiratory failure from drug overdose- on O2 NC 4-->2 L/min Weaning off gradually # ? Fentanyl Overdose # Polysubstance Abuse/ overdose # Methamphetamine & marijuana abuse disorder/ dependence # tobacco abuse /dependence # homelessness- social service consult - UDS positive for fentanyl, methamphetamine, marijuana - In ED patient was given Narcan - counseled regarding polysubstance abuse cessation - monitor for withdrawal symptoms and vitals closely -ABGs: PH 7.465, PO2 52.8, HC03 25.4 - social work coordinator consulted for home oxygen -pending 6 minute walk test - Lasix 20 mg twice daily for today - discontinued IV fluids - ordered hepatitis, HIV screening given drug use # Sepsis likely from below # Acute complicated UTI/ cystitis - evident on urinalysis - ordered urine bacterial culture, growing E.coli - currently giving Rocephin # R/o structural heart disease - BNP not elevated - Echocardiogram -LV EF 65% - CXR showing cardiomegaly and possible CHF # R/o G+/- Bacterial PNA - respiratory cultures - Rocephin plus azithromycin - continue oxygen therapy as needed Protonix Lovenox Regular diet Full code status Plan discussed with Dr. Thomas Plan discussed with: Patient, Other (Nurse) My Orders My Orders Orders - MONICA KWAN Procedure Category Date Status Time Chest Xray 1 View XY 07/30/24 Resulted 07:11 * Eyeglass Fitter CONS 07/30/24 Transmitted Consult 09:13 Hi 6-Min Walk Test HDVI 07/30/24 Logged 11:55 Dietary Evaluation Review Recommendations by RD: Dietary education by RD, Protein Supplementation Comments: 1) Initiate Ensure Enlive qd. Encourage optimal PO intake 2) Advance to regular diet when medically feasible, pending speech therapy approval 3) Refer to outpatient RD for weight management 4) Follow-up with social work coordinator r/t polysubstance abuse and housing assistance 5) Continue to monitor I&O, labs, and skin integrity Expected Outcomes/Goals: 1) appetite and labs to improve 2) diet to advance 3) f/u in 2-3 days MONICA KWAN RESIDENT Jul 30, 2024 14:33
[2024-07-30] MEDS: POTASSIUM EFFERVESENT TAB 25 MEQ PO ONE (17:33)
--- NOTE | 2024-07-31 16:56 | DVHDSRES ---
Discharge Summary Date of Admission Resident Creating Document: MONICA WKAN RESIDENT July 26, 2024 at 13:39 Date of Discharge: Jul 30, 2024 Labs/Diagnostic Data: Laboratory Results Test 07/30/24 16:00 07/29/24 12:16 07/29/24 05:47 07/27/24 11:45 HIV (1&2) Antibody Negative (Negative) Blood Gas Specimen Type Arterial Blood Gas Sample Site Left radial Blood Gas Patient Temperature 37.0 Arterial Blood Date Drawn [id number] Arterial Blood pH 7.465 (7.350-7.450) Arterial Blood Partial Pressure CO2 36.1 mmHg (32.0-45.0) Arterial Blood Partial Pressure O2 52.8 mmHg (83.0-108.0) Arterial Blood HCO3 25.4 mmol/L (21.0-28.0) Arterial Blood Oxygen Saturation 85.7 % (94.0-98.0) Arterial Blood Base Excess 1.9 mmol/L (-2.0-3.0) Arterial Blood Oxyhemoglobin 84.8 % (94.0-98.0) Arterial Blood Carboxyhemoglobin 0.6 % (0.5-1.5) Arterial Blood Methemoglobin 0.5 % (0.0-1.5) Brandon Test Yes Blood Gas Total Hemoglobin 13.00 g/dL (12.0-16.0) Blood Gas Modality Room air FiO2 % 21.0 Blood Gas Critical Value Read Back Yes Blood Gas Notified Whom norah Phillips Blood Gas Notified Time [id number] Blood Gas Notified By Welfare Investigator tae burns White Blood Count 7.8 10^3/uL (4.4-10.8) Red Blood Count 4.21 10^6/uL (4.0-5.20) Hemoglobin 12.5 g/dL (12.2-16.2) Hematocrit 36.2 % (36.0-46.0) Mean Corpuscular Volume 86.1 fL (80.0-100.0) Mean Corpuscular Hemoglobin 29.6 pg (28.0-32.0) Mean Corpuscular Hemoglobin Concent 34.4 g/dL (32.0-36.0) Red Cell Distribution Width 13.5 % (11.8-14.3) Platelet Count 240 10^3/uL (140-450) Mean Platelet Volume 7.9 fL (6.9-10.8) Neutrophils (%) (Auto) 73.7 % (37.0-80.0) Lymphocytes (%) (Auto) 16.1 % (10.0-50.0) Monocytes (%) (Auto) 7.9 % (0.0-12.0) Eosinophils (%) (Auto) 1.7 % (0.0-7.0) Basophils (%) (Auto) 0.6 % (0.0-2.0) Neutrophils # (Auto) 5.7 10 ^3/uL (1.6-8.6) Lymphocytes # (Auto) 1.3 10 ^3/uL (0.4-5.4) Monocytes # (Auto) 0.6 10 ^3/uL (0-1.3) Eosinophils # (Auto) 0.1 10 ^3/uL (0-0.8) Basophils # (Auto) 0 10 ^3/uL (0-0.2) Nucleated Red Blood Cells 0.1 % Sodium Level 141 mmol/L (136-145) Potassium Level 3.5 mmol/L (3.5-5.1) Chloride Level 108 mmol/L (98-107) Carbon Dioxide Level 26 mmol/L (20-31) Anion Gap 7 (5-15) Blood Urea Nitrogen < 5 mg/dL (9-23) Creatinine 0.56 mg/dL (0.550-1.02) Glomerular Filtration Rate Calc 123 mL/min (>90) BUN/Creatinine Ratio 8.9 (10.0-20.0) Serum Glucose 101 mg/dL (74-106) Calcium Level 9.6 mg/dL (8.7-10.4) Influenza Type A Antigen Negative (Negative) Influenza Type B Antigen Negative (Negative) SARS-CoV-2 Antigen (Rapid) Negative (NEGATIVE) Test 07/27/24 10:37 07/26/24 14:14 07/26/24 12:48 Prothrombin Time 10.8 sec (9.3-11.8) Prothrombin Time INR 1.02 (0.9-1.15) Activated Partial Thromboplast Time 28.8 SEC (24.5-34.5) Hemoglobin A1c 5.1 % A1C (<5.7) Magnesium Level 1.6 mg/dL (1.6-2.6) Total Bilirubin 0.8 mg/dL (0.2-1.0) Aspartate Amino Transferase (AST) 39 U/L (13-40) Alanine Aminotransferase (ALT) 26 U/L (7-40) Alkaline Phosphatase 108 U/L (46-116) Ammonia 23 umol/L (11-32) B-Type Natriuretic Peptide 37.27 pg/mL (0-100) Total Protein 7.1 g/dL (5.7-8.2) Albumin 4.4 g/dL (3.2-4.8) Thyroid Stimulating Hormone (TSH) 1.45 uIU/mL (0.55-4.78) Beta HCG, Quantitative 0.4 mIU/mL (1.5-4.2) Lactic Acid Level 0.8 mmol/L (0.4-2.0) Urine Color Yellow (Yellow) Urine Clarity Turbid (Clear) Urine pH 5.5 (5.0-9.0) Urine Specific [place] 1.032 (1.001-1.035) Urine Protein 1+ (Negative) Urine Ketones Negative (Negative) Urine Blood Negative /uL (Negative) Urine Nitrite 2+ (Negative) Urine Bilirubin Negative (Negative) Urine Urobilinogen Normal mg/dL (Negative) Urine Leukocyte Esterase Negative /uL (Negative) Urine RBC 2 /hpf (0 - 4) Urine Microscopic WBC 5 /HPF (0-5) Urine Squamous Epithelial Cells Few /hpf (<5) Urine Amorphous Crystals Few /hpf (None Seen) Urine Bacteria Few /hpf (None Seen) Urine Mucus Few (None Seen) Urine Glucose Normal mg/dL (Normal) Urine Opiates Screen Neg (NEGATIVE) Urine Fentanyl Screen Pos (NEGATIVE) Urine Barbiturates Screen Neg (NEGATIVE) Urine Phencyclidine Screen Neg (NEGATIVE) Urine Amphetamines Screen Pos (NEGATIVE) Urine Benzodiazepines Screen Neg (NEGATIVE) Urine Cocaine Screen Neg (NEGATIVE) Urine Cannabinoids Screen Pos (NEGATIVE) Other Laboratory Tests 07/29/24 05:47 Brief Hx & Hospital Course: Isabell Buckner is a 33-year-old homeless female with a past medical history of juvenile arthritis and longstanding drug abuse who presented to the emergency department with altered level of consciousness, suspected to be secondary to a drug overdose. According to EMS, the patient was found at a location with another individual, both exhibiting altered mental status and pinpoint pupils, suggesting possible opioid use. The setting appeared to be a libertarian. Upon evaluation in the ED, the patient is now more alert and oriented. She reports being homeless and recently arrived from [place]. She admits to a cocaine overdose, stating that she began sneezing and subsequently lost memory of the events that followed. The patient disclosed a long history of substance use, including daily use of methamphetamine, marijuana, and smoking half a pack of cigarettes since the age of 10. She denies current sexual activity and reports no history of sexual abuse. During hospitalization, UDS was positive for fentanyl, methamphetamine, marijuana. In ED patient was given Narcan. HIV was negative. Patient required oxygen supplementation at 3 L via NC. ABGs completed, PO2 was 54, social psychologist was consulted for home oxygen. Patient eloped during medical evaluation and treatment. Condition at Discharge: Undetermined Final Diagnosis/Problems List Acute toxic / metabolic encephalopathy likely from polysubstance use # Acute hypoxic respiratory failure from drug overdose- on O2 NC 4-->2 L/min Weaning off gradually # ? Fentanyl Overdose # Polysubstance Abuse/ overdose #Sepsis likely from pneumonia # Gram-positive and Gram-negative bacterial pneumonia # probable congestive heart failure # acute cystitis # Methamphetamine & marijuana abuse disorder/ dependence # tobacco abuse /dependence # homelessness- social service consult Discharge Disposition: Eloped Discharge Statement: "Patient was advised to return to the ER or call 911 if any headaches, dizziness, shortness of breath, chest pain, abdominal pain, bleeding, fevers, or worsening of medical condition. Patient was counseled about treatment plan, medications, possible side effects, patientverbalized understanding. All questions were answered to the best of my ability. This discharge took greater then 30 minutes in planning, reviewing documentation, counseling the patient, and discussing with other team members." ASSESSMENT ASSESSMENT Assessment Date of Service: Jul 30, 2024 Billing Provider: LEIDA BUNCH MD Common Visit Codes: 74010-UHM/OBS DISCH DAY >30min MONICA KWAN RESIDENT Jul 31, 2024 16:56 LEIDA BUNCH MD Aug 01, 2024 08:59
[2024-08-01 10:05] LABS: Hepatitis B Surface Antibody Negative (Negative)
[2024-08-01 10:07] LABS: Hepatitis B Surface Antigen Negative (Negative)
== END 2024-07-30 21:25 | disposition left against medical advice (07) | DRG 812 ==
LOC: EDBD 05:09 → ER 05:09 → OVERFLOW 13:39 → TELE-WESTW 17:20
PROVIDERS: ADMIT Student in an Organized Health Care Education/Training Program; ATTEND Emergency Medicine
DX: T40.411A Poisoning by fentanyl or fentanyl analogs, accidental (unintentional), initial encounter (principal); A41.59 Other Gram-negative sepsis; J96.01 Acute respiratory failure with hypoxia; G92.8 Other toxic encephalopathy; J15.69 Pneumonia due to other Gram-negative bacteria; J15.9 Unspecified bacterial pneumonia; I50.9 Heart failure, unspecified; F12.20 Cannabis dependence, uncomplicated; F15.20 Other stimulant dependence, uncomplicated; F10.20 Alcohol dependence, uncomplicated; F19.10 Other psychoactive substance abuse, uncomplicated; Z20.822 Contact with and (suspected) exposure to COVID-19; F17.210 Nicotine dependence, cigarettes, uncomplicated; N30.00 Acute cystitis without hematuria; Z59.00 Homelessness unspecified; Y92.89 Other specified places as the place of occurrence of the external cause
CPT/HCPCS: 36415; 36600; 70450; 71045; 80048; 80053; 80307; 81001; 82140; 82805; 83036; 83605; 83735; 83880; 84443; 84702; 85025; 85610; 85730; 86703; 86706; 86803; 87040; 87086; 87088; 87186; 87340; 87426; 87804; 93005; 93306; 94618; 99291; 99292; G0378; J2470